=== PATIENT | male | born 1940 | race Caucasian/White ===

== ENCOUNTER 2025-02-08 13:17 | Emergency (ER) | payer OTHER ==
[~2025-02-08] VITALS: Ht 175.3 cm; Wt 90.7 kg
[2025-02-08 14:20] LABS: BASOPHILS ABSOLUTE AUTO 0.04 K/mm3 (0.00-0.23); BASOPHILS PERCENT AUTO 1 % (0-2); EOSINOPHILS ABSOLUTE AUTO 0.23 K/mm3 (0.00-0.68); EOSINOPHILS PERCENT AUTO 3 % (0-6); Hematocrit 34.1 % (37.0-53.0); Hemoglobin 11.5 g/dL (13.5-17.5); IMMATURE GRAN ABSOLUTE AUTO 0.02 K/mm3 (0.00-0.10); IMMATURE GRAN PERCENT AUTO 0 % (0-1); LYMPHOCYTES ABSOLUTE AUTO 2.25 K/mm3 (0.84-5.20); LYMPHOCYTES PERCENT AUTO 33 % (21-46); MONOCYTES ABSOLUTE AUTO 0.91 K/mm3 (0.16-1.47); MONOCYTES PERCENT AUTO 14 % (4-13); Mean Corpuscular HGB Conc 33.7 g/dL (31.5-36.5); Mean Corpuscular Volume 101 fL (80-100); NEUTROPHILS ABSOLUTE AUTO 3.29 K/mm3 (1.96-9.15); NEUTROPHILS PERCENT AUTO 49 % (41-73); NRBC ABSOLUTE 0.00 K/mm3 (0.00-0.02); NRBC Auto 0.0 /100 WBC (0.0-0.2); Platelet Count 141 K/mm3 (150-400); RDW Coefficient Variation 14.5 % (11.7-14.2); RDW Standard Deviation 54.1 fL (35.1-46.3)
[2025-02-08 14:38] LABS: Alanine Aminotransfer (ALT/SGP 36.0 U/L (12-78); Albumin, Blood 2.2 g/dL (3.4-5.0); Albumin/Globulin Ratio 0.7 (0.8-1.8); Anion Gap 7.0 mmol/L (3-11); Aspartate Aminotrans (AST/SGOT 41.0 U/L (12-37); Bilirubin, Total 1.5 mg/dL (0.1-1.0); Blood Urea Nitrogen 23.0 mg/dL (8-24); CO2, Blood 24.0 mmol/L (21-32); Calcium, Blood 7.8 mg/dL (8.5-10.1); Chloride, Blood 114.0 mmol/L (98-108); Creatinine, Blood 0.83 mg/dL (0.60-1.20); Globulin, Blood 3.0 g/dL (2.2-4.0); Glucose, Blood 101.0 mg/dL (70-99); Potassium, Blood 4.0 mmol/L (3.5-5.5); Sodium, Blood 141.0 mmol/L (136-145); Total Protein, Blood 5.2 g/dL (6.4-8.2)
[2025-02-08] MEDS ORDERED: NYSTATIN15 GM TOP (15:29)
[2025-02-08] MEDS ORDERED: CALC.25 PO (15:29)
[2025-02-08] MEDS ORDERED: FURO20 PO (15:29)
[2025-02-08 16:00] VITALS: BP 113/88
== END 2025-02-08 16:53 | disposition home or self-care (01) ==
LOC: ER 13:17
PROVIDERS: Physician Assistant
DX: I50.9 Heart failure, unspecified (principal); B37.2 Candidiasis of skin and nail; E83.51 Hypocalcemia; J44.9 Chronic obstructive pulmonary disease, unspecified
CPT/HCPCS: 71046; 80053; 83880; 85025; 96374; 99284-25; A9270; J1938